=== PATIENT | female | born 1985 | race African-American/Black ===

== ENCOUNTER 2016-08-19 13:15 | Emergency (ER) | payer MEDICAID ==
--- NOTE | 2016-08-19 13:20 | ER Document Report ---
ED Medical Screen (RME) - General Stated Complaint: STOMACH PAIN Notes: 30 yo female c/o epigastric and suprapubic pain. epigastric pain x 2wk, intermittant. not aggrevated by food or drink. + nausea. suprapubic pressure x 2wk, intermittant. + dysuria, + urgency, + frequency, + vaginal discharge. + odor, no itch. pt hx/o anemia, anxiety TRAVEL OUTSIDE OF THE [place] IN LAST 30 DAYS: No - Related Data Allergies/Adverse Reactions: No Known Allergies Allergy (Verified 07/20/16 22:46) Past Medical History - Past Medical History Cardiac Medical History: Denies: Hx Coronary Artery Disease, Hx Heart Attack, Hx Hypertension Pulmonary Medical History: Denies: Hx Asthma, Hx Bronchitis, Hx COPD, Hx Pneumonia Neurological Medical History: Denies: Hx Cerebrovascular Accident, Hx Seizures Endocrine Medical History: Denies: Hx Diabetes Mellitus Type 1, Hx Diabetes Mellitus Type 2 Musculoskeltal Medical History: Denies Hx Arthritis Psychiatric Medical History: Reports: Hx Anxiety, Hx Depression Past Surgical History: Reports: Hx Tubal Ligation - Immunizations Immunizations up to date: Yes Hx Diphtheria, Pertussis, Tetanus Vaccination: Yes
[2016-08-19] MEDS ORDERED: METOCLOPRAMIDE HCL ORAL SOLN 10 MG/10 ML UDCUP PO ONE (13:21)
[2016-08-19] MEDS ORDERED: LIDOCAINE 2% VISCOUS SOLN 20 ML UDCUP PO ONE (13:21)
[2016-08-19] MEDS ORDERED: MAG HYDROX/AL HYDROX/SIMETH SUSP 30 ML UDCUP PO ONE (13:21)
[2016-08-19 14:18] LABS: APPEARANCE,URINE SLIGHTLY-CLOUDY; BILIRUBIN,URINE NEGATIVE (NEGATIVE); GLUCOSE, URINE NEGATIVE (NEGATIVE); KETONES,URINE NEGATIVE (NEGATIVE); LEUKOCYTE ESTERASE,URINE TRACE (NEGATIVE); NITRITE,URINE NEGATIVE (NEGATIVE); PROTEIN,URINE NEGATIVE (NEGATIVE); UROBILINOGEN,URINE NEGATIVE mg/dL (<2.0)
[2016-08-19 14:33] LABS: ABSOLUTE EOSINOPHILS # (AUTO) 0.1 10^3/uL (0.0-0.6); ABSOLUTE MONOCYTES (AUTO) 0.2 10^3/uL (0.1-1.4); ABSOLUTE NEUT (AUTO) 3.8 10^3/uL (1.7-8.2); BASOPHILS % (AUTO) 0.8 % (0-2); EOSINOPHILS % (AUTO) 1.8 % (0-6); HEMATOCRIT 38.2 % (36.0-47.0); HEMOGLOBIN 12.5 g/dL (12.0-15.5); HGB HCT DIFFERENCE -0.7; LYMPHOCYTES % (AUTO) 32.2 % (13-45); MEAN CORPUSCULAR HEMOGLOBIN 25.2 pg (27.0-33.4); MEAN CORPUSCULAR HGB CONC 32.8 g/dL (32.0-36.0); MEAN CORPUSCULAR VOLUME 77 fl (80-97); MONOCYTES % (AUTO) 3.5 % (3-13); RED BLOOD COUNT 4.97 10^6/uL (3.72-5.28); RED CELL DISTRIBUTION WIDTH 13.9 % (11.5-14.0); SEGMENTED NEUTROPHILS % (AUTO) 61.7 % (42-78); WHITE BLOOD COUNT 6.2 10^3/uL (4.0-10.5)
--- NOTE | 2016-08-19 16:06 | ER Document Report ---
ED GI/ - General Chief Complaint: Abdominal Pain Stated Complaint: STOMACH PAIN Notes: The patient is a 30-year-old female, past medical history bipolar, presents with 2 days of epigastric pain, described as a burning sensation. She is unsure about when the pain begins, but she does see that it worsens after she eats. She is also having a small amount of vaginal discharge and is concerned she has BV. She saw her health and wellness instructor and was told she did not have BV, but she did not have any exam. She also wrote on her triage sheet that she had eye pain , but denies any eye pain to me. She denies nausea, vomiting, back pain, abdominal distention, concern for STD, flank pain, dysuria, hematuria, blurry vision or rash. TRAVEL OUTSIDE OF THE [place] IN LAST 30 DAYS: No - Related Data Allergies/Adverse Reactions: No Known Allergies Allergy (Verified 08/19/16 13:19) Past Medical History - General Information source: Patient - Social History Smoking Status: Never Smoker Chew tobacco use (# tins/day): No Frequency of alcohol use: None Drug Abuse: None Family History: Reviewed & Not Pertinent Patient has suicidal ideation: No Patient has homicidal ideation: No - Past Medical History Cardiac Medical History: Denies: Hx Coronary Artery Disease, Hx Heart Attack, Hx Hypertension Pulmonary Medical History: Denies: Hx Asthma, Hx Bronchitis, Hx COPD, Hx Pneumonia Neurological Medical History: Denies: Hx Cerebrovascular Accident, Hx Seizures Endocrine Medical History: Denies: Hx Diabetes Mellitus Type 1, Hx Diabetes Mellitus Type 2 Musculoskeltal Medical History: Denies Hx Arthritis Psychiatric Medical History: Reports: Hx Anxiety, Hx Depression Past Surgical History: Reports: Hx Tubal Ligation - Immunizations Immunizations up to date: Yes Hx Diphtheria, Pertussis, Tetanus Vaccination: Yes Review of Systems - Review of Systems Notes: REVIEW OF SYSTEMS: CONSTITUTIONAL: -fevers, -chills EENT: -eye pain, -difficulty swallowing, -nasal congestion CARDIOVASCULAR:-chest pain, -syncope. RESPIRATORY: -cough, -SOB GASTROINTESTINAL: +abdominal pain, - nausea, -vomiting, -diarrhea GENITOURINARY: -dysuria, -hematuria, +vaginal discharge MUSCULOSKELETAL: -back pain, -neck pain SKIN: -rash or skin lesions. HEMATOLOGIC: -easy bruising or bleeding. LYMPHATIC: -swollen, enlarged glands. NEUROLOGICAL: -altered mental status or loss of consciousness, -headache, - neurologic symptoms PSYCHIATRIC: -anxiety, -depression. ALL OTHER SYSTEMS REVIEWED AND NEGATIVE. Physical Exam - Vital signs Vitals: Temp Pulse Resp BP Pulse Ox 97.9 F 89 14 127/86 H 98 08/19/16 13:19 08/19/16 13:19 08/19/16 13:19 08/19/16 13:19 08/19/16 13:19 - Notes Notes: PHYSICAL EXAMINATION: GENERAL: Well-appearing, well-nourished and in no acute distress. HEAD: Atraumatic, normocephalic. EYES: Pupils equal round and reactive to light, extraocular movements intact, sclera anicteric, conjunctiva are normal. ENT: nares patent, oropharynx clear without exudates. Moist mucous membranes. NECK: Normal range of motion, supple without lymphadenopathy LUNGS: Breath sounds clear to auscultation bilaterally and equal. No wheezes rales or rhonchi. HEART: Regular rate and rhythm without murmurs ABDOMEN: Soft, mild epigastric tender, normoactive bowel sounds. No guarding, no rebound. No masses appreciated. : Chaperoned by PCT. No vaginal discharge. Nontender adnexa and uterus. EXTREMITIES: Normal range of motion, no pitting or edema. No cyanosis. NEUROLOGICAL: Cranial nerves grossly intact. Normal speech, normal gait. Normal sensory, motor, and reflex exams. PSYCH: Normal mood, normal affect. SKIN: Warm, Dry, normal turgor, no rashes or lesions noted. Course - Re-evaluation Re-evalutation: Patient does not have any evidence of UTI or cervicitis on exam. She does not want to be treated for gonorrhea chlamydia at this time. She does not have BV on wet mount. She is only mildly tender in the epigastric region. Some labs were sent by [employer] prior to my evaluation. She does not require labs at this time because symptoms are consistent with gastritis. Will begin her on Pepcid and follow up with her primary care physician. - Vital Signs Vital signs: Temp Pulse Resp BP Pulse Ox 98.4 F 88 16 146/81 H 100 08/19/16 16:11 08/19/16 16:11 08/19/16 16:11 08/19/16 16:11 08/19/16 16:11 - Laboratory Result Diagrams: 08/19/16 14:20 08/19/16 14:20 Laboratory results interpreted by me: 08/19/16 08/19/16 13:42 14:20 MCV 77 L MCH 25.2 L Ur Leukocyte Esterase TRACE H Discharge - Discharge Clinical Impression: Vaginal discharge Gastritis Qualifiers: Gastritis type: unspecified gastritis Chronicity: unspecified Gastritis bleeding: without bleeding Qualified Code(s): K29.70 - Gastritis, unspecified, without bleeding Condition: Good Disposition: HOME, SELF-CARE Additional Instructions: Gastritis You have an inflammation of the stomach called gastritis. This commonly causes upper abdominal pain, nausea, and vomiting. In severe cases, bleeding of the stomach lining can occur. Gastritis can be caused by bacteria or viruses , alcohol, or stomach-irritating drugs. Begin with sips of clear liquids. Take increasing amounts of fluid over the first 24 hours. Then start small amounts of bland foods (such as dry toast , applesauce, mashed potato). Gradually resume your usual diet. You should take antacids every two hours until the pain has subsided. Acid -suppressing drugs may be prescribed as well. Avoid aspirin, caffeine, tobacco , and alcohol. If the abdominal pain worsens, or there is evidence of major bleeding in the stomach (such as black, tarry stool, bloody or black vomit, or lightheadedness), you should return immediately. Call the doctor if you aren't improved in 24 to 36 hours. Prescriptions: Famotidine [Pepcid 20 mg Tablet] 20 mg PO BID #20 tablet
[2016-08-19 16:11] VITALS: BP 146/81
[2016-08-19 16:54] LABS: CHLAM PCR NOT DETECTED (NOT DETECT)
== END 2016-08-19 16:29 | disposition home or self-care (01) ==
LOC: ER 13:15
DX: K29.70 Gastritis, unspecified, without bleeding (principal); N89.8 Other specified noninflammatory disorders of vagina; R10.9 Unspecified abdominal pain; F31.9 Bipolar disorder, unspecified; R10.13 Epigastric pain
CPT/HCPCS: 99284; 36415; 87210; 85025; 81025; 81001; 87491; 87591; J3490 ×3

== ENCOUNTER 2016-11-14 21:03 | Emergency (ER) | payer MEDICAID ==
[2016-11-14 22:02] VITALS: BP 142/91
[2016-11-14 23:44] LABS: APPEARANCE,URINE CLOUDY; BILIRUBIN,URINE NEGATIVE (NEGATIVE); GLUCOSE, URINE NEGATIVE (NEGATIVE); KETONES,URINE TRACE mg/dL (NEGATIVE); LEUKOCYTE ESTERASE,URINE MODERATE (NEGATIVE); NITRITE,URINE NEGATIVE (NEGATIVE); PROTEIN,URINE 30 mg/dL (NEGATIVE); URINE SPECIFIC GRAVITY 1.032; UROBILINOGEN,URINE NEGATIVE mg/dL (<2.0)
--- NOTE | 2016-11-15 01:10 | ER Document Report ---
ED General - General Chief Complaint: Pelvic Pain Stated Complaint: LOWER ABDOMINAL PAIN Notes: Patient is a 31-year-old female who presents with dysuria and suprapubic abdominal pain. Describes the pain as a dull, constant, aching pain to the suprapubic region that is worsened by urinating. She notes associated dysuria without hematuria. She has not seen her primary doctor regarding today's concerns. Nothing improves or worsens her pain. States this feels very similar to when she's had urinary tract infections in the past. Also notes that she continues to have malodorous vaginal discharge which she was diagnosed as having bacterial vaginosis. States she completed a course of metronidazole but this has not resolved her symptoms. Denies Vaginal bleeding. No vomiting or diarrhea. No abdominal pain to any other location beyond the suprapubic region. TRAVEL OUTSIDE OF THE [place] IN LAST 30 DAYS: No - Related Data Allergies/Adverse Reactions: No Known Allergies Allergy (Verified 11/14/16 21:57) Past Medical History - General Information source: Patient - Social History Smoking Status: Never Smoker Frequency of alcohol use: None Drug Abuse: None Lives with: Spouse/Significant other Family History: Reviewed & Not Pertinent Patient has suicidal ideation: No Patient has homicidal ideation: No - Past Medical History Cardiac Medical History: Denies: Hx Coronary Artery Disease, Hx Heart Attack, Hx Hypertension Pulmonary Medical History: Denies: Hx Asthma, Hx Bronchitis, Hx COPD, Hx Pneumonia Neurological Medical History: Denies: Hx Cerebrovascular Accident, Hx Seizures Endocrine Medical History: Denies: Hx Diabetes Mellitus Type 1, Hx Diabetes Mellitus Type 2 Renal/ Medical History: Denies: Hx Peritoneal Dialysis Musculoskeltal Medical History: Denies Hx Arthritis Psychiatric Medical History: Reports: Hx Anxiety, Hx Depression Past Surgical History: Reports: Hx Tubal Ligation - Immunizations Immunizations up to date: Yes Hx Diphtheria, Pertussis, Tetanus Vaccination: Yes Review of Systems - Review of Systems Notes: Constitutional: Negative for fever. HENT: Negative for sore throat. Eyes: Negative for visual changes. Cardiovascular: Negative for chest pain. Respiratory: Negative for shortness of breath. Gastrointestinal: Negative for abdominal pain, vomiting or diarrhea. Genitourinary: Positive for dysuria. Musculoskeletal: Negative for back pain. Skin: Negative for rash. Neurological: Negative for headaches, weakness or numbness. 10 point ROS negative except as marked above and in HPI. Physical Exam - Vital signs Vitals: Temp Pulse Resp BP Pulse Ox 98.4 F 87 18 142/91 H 99 11/14/16 21:57 11/14/16 21:57 11/14/16 21:57 11/14/16 21:57 11/14/16 21:57 Interpretation: Hypertensive Notes: PHYSICAL EXAMINATION: GENERAL: Well-appearing, well-nourished and in no acute distress. HEAD: Atraumatic, normocephalic. EYES: Pupils equal round and reactive to light, extraocular movements intact, sclera anicteric, conjunctiva are normal. ENT: nares patent, oropharynx clear without exudates. Moist mucous membranes. NECK: Normal range of motion, supple without lymphadenopathy LUNGS: Breath sounds clear to auscultation bilaterally and equal. No wheezes rales or rhonchi. HEART: Regular rate and rhythm without murmurs ABDOMEN: Soft, mild suprapubic tenderness to palpation, normoactive bowel sounds. No guarding, no rebound. No masses appreciated. EXTREMITIES: Normal range of motion, no pitting or edema. No cyanosis. NEUROLOGICAL: No focal neurological deficits. Moves all extremities spontaneously and on command. PSYCH: Normal mood, normal affect. SKIN: Warm, Dry, normal turgor, no rashes or lesions noted. Course - Re-evaluation Re-evalutation: 11/15/16 01:09 Patient presents with symptoms consistent with an acute cystitis. Vitals wnl. No history of fever, flank pain, or constitution symptoms to suggest ascending infection at this time. Patient is well in appearance, tolerating oral intake without difficulty. No focal abdominal tenderness to suggest acute appendicitis , biliary pathology, acute pancreatitis, tubo-ovarian abscesses, or pelvic inflammatory disease. Patient will be started on antibiotics at this time. I also started the patient on a repeat dose course of metronidazole given her concerns for ongoing bacterial vaginosis and instructed her follow-up with her [employer] regarding these concerns A culture has been sent. They will be discharged with return precautions and follow-up recommendations. - Vital Signs Vital signs: Temp Pulse Resp BP Pulse Ox 98.4 F 87 18 142/91 H 99 11/14/16 21:57 11/14/16 21:57 11/14/16 21:57 11/14/16 21:57 11/14/16 21:57 - Laboratory Laboratory results interpreted by me: 11/14/16 23:20 Urine Protein 30 H Urine Ketones TRACE H Ur Leukocyte Esterase MODERATE H Discharge - Discharge Clinical Impression: Urinary tract infection Qualifiers: Urinary tract infection type: acute cystitis Hematuria presence: without hematuria Qualified Code(s): N30.00 - Acute cystitis without hematuria Condition: Good Disposition: HOME, SELF-CARE Additional Instructions: Your urine shows findings consistent with a urinary tract infection. Please take all the antibiotics as directed even if your symptoms have improved. Please follow-up with your primary care physician as needed. Return to emergency room if you develop fever >101F, persistent vomiting, become lethargic , have severe pain in your sides, or any other symptoms that are concerning to you. Prescriptions: Cephalexin Monohydrate [Keflex 500 mg Capsule] 500 mg PO QID #20 capsule Metronidazole [Flagyl 500 mg Tablet] 500 mg PO TID #21 tablet Referrals: GABBY FULTON MD [Primary Care Provider] - Follow up as needed
== END 2016-11-15 01:20 | disposition home or self-care (01) ==
LOC: ER 21:03
DX: N30.00 Acute cystitis without hematuria (principal); R10.2 Pelvic and perineal pain; R30.0 Dysuria; N89.8 Other specified noninflammatory disorders of vagina; Z98.51 Tubal ligation status
CPT/HCPCS: 36415; 81001; 81025; 87086; 87088; 99284

== ENCOUNTER 2016-11-20 14:22 | Emergency (ER) | payer MEDICAID ==
--- NOTE | 2016-11-20 15:22 | ER Document Report ---
HPI - HPI Patient complains to provider of: painful urination, low abd. pain Onset: Other - 2 weeks Onset/Duration: Gradual, Persistent Pain Level: 4 Context: 31 yo female c/o low abd pain for 2 weeks, mild, intermittent, sharp. Dx with uti 4 days ago in er, meds not working. No pelvic exam was done. No fever or chills. no n/v/d. Associated Symptoms: None Exacerbated by: Denies Relieved by: Denies - ROS ROS below otherwise negative: Yes Systems Reviewed and Negative: Yes All other systems reviewed and negative - REPRODUCTIVE Reproductive: DENIES: : - DERM Skin Color: Normal Past Medical History - General Information source: Patient - Social History Smoking Status: Never Smoker Frequency of alcohol use: None Drug Abuse: None Lives with: Family Family History: Reviewed & Not Pertinent Patient has suicidal ideation: No Patient has homicidal ideation: No Renal/ Medical History: Denies: Hx Peritoneal Dialysis Psychiatric Medical History: Reports: Hx Anxiety, Hx Depression Surgical Hx: Negative Past Surgical History: Reports: Hx Tubal Ligation - Immunizations Immunizations up to date: Yes Hx Diphtheria, Pertussis, Tetanus Vaccination: Yes Vertical Provider Document - CONSTITUTIONAL Agree With Documented VS: Yes Exam Limitations: No Limitations - INFECTION CONTROL TRAVEL OUTSIDE OF THE [place] IN LAST 30 DAYS: No - HEENT HEENT: Normal ENT Exam - NECK Neck: Supple - RESPIRATORY Respiratory: Breath Sounds Normal, No Respiratory Distress O2 Sat by Pulse Oximetry: 100 - CARDIOVASCULAR Cardiovascular: Regular Rate, Regular Rhythm - GI/ABDOMEN Gastrointestinal: Abdomen Soft, Abdomen Tender - mild suprapubic, No Organomegaly - REPRODUCTIVE Female Genitalia: Normal Inspection. negative: CMT - BACK Back: Normal Inspection. negative: CVA Tenderness-Right, CVA Tenderness-Left - MUSCULOSKELETAL/EXTREMETIES Musculoskeletal/Extremeties: NICOLASA BRYANT - NEURO Level of Consciousness: Awake, Alert - DERM Integumentary: Warm, Dry, No Rash Course - Re-evaluation Re-evalutation: 11/20/16 16:51 The urine culture from 2 weeks ago showed [id number] genital bacteria , group B strep 20,000-30,000. 11/20/16 16:51 HCG is negative. 2+ bacteria and her urinalysis and the urine culture is pending. She will call me back for the STD culture results. The wet prep is negative. - Vital Signs Vital signs: Temp Pulse Resp BP Pulse Ox 98.2 F 94 15 142/86 H 100 11/20/16 14:26 11/20/16 14:26 11/20/16 14:26 11/20/16 14:26 11/20/16 14:26 Discharge - Discharge Clinical Impression: suprapubic discomfort, urinary tract infection Condition: Good Disposition: HOME, SELF-CARE Instructions: Urinary Tract Infection ([facility]), Trimethoprim-Sulfa ([facility]) Additional Instructions: Urine culture is pending We will notify you if he needs a different antibiotic Please call me in 2 hours at [phone] for the STD culture results Return to the emergency room any worsening of the symptoms Please complete the patient satisfaction survey if you get one, and return it.. If you do not receive a survey, then you can go to the [facility] website, [email or web address] and place your comments about your very good care. Thank you very much. It was a pleasure being your medical provider today. Prescriptions: Sulfamethoxazole/Trimethoprim [Sulfamethoxazole-Tmp Ds Tablet] 1 each PO BID # 14 tablet Forms: Return to Work
[2016-11-20 16:27] LABS: APPEARANCE,URINE SLIGHTLY-CLOUDY; BILIRUBIN,URINE NEGATIVE (NEGATIVE); GLUCOSE, URINE NEGATIVE (NEGATIVE); KETONES,URINE NEGATIVE (NEGATIVE); LEUKOCYTE ESTERASE,URINE LARGE (NEGATIVE); NITRITE,URINE NEGATIVE (NEGATIVE); PROTEIN,URINE NEGATIVE (NEGATIVE); URINE SPECIFIC GRAVITY 1.012; UROBILINOGEN,URINE NEGATIVE mg/dL (<2.0)
[2016-11-20 16:59] VITALS: BP 133/82
[2016-11-20 17:51] LABS: CHLAM PCR NOT DETECTED (NOT DETECT)
== END 2016-11-20 16:59 | disposition home or self-care (01) ==
LOC: ER 14:22
DX: N39.0 Urinary tract infection, site not specified (principal); R30.9 Painful micturition, unspecified; R10.30 Lower abdominal pain, unspecified
CPT/HCPCS: 81001; 81025; 87086; 87210; 87491; 87591; 99283

== ENCOUNTER 2017-11-22 11:31 | Emergency (ER) | payer MEDICAID ==
--- NOTE | 2017-11-22 12:03 | ER Document Report ---
HPI - HPI Patient complains to provider of: neck muscle pain Onset/Duration: Gradual Pain Level: 4 Context: 32 yo female c/o posterior neck rash, used biofreeze 2 days ago, but also did hair conditioner for 8 hours yesterday, not sure if the rash on her neck is from the biofreeze of the hair conditioner. Also complaining of irritation and mild discomfort to her right eye which is better than the left eye. She said she had some watery drainage that started yesterday at the same time as the rash. Associated Symptoms: None Exacerbated by: Coughing Relieved by: Denies Similar symptoms previously: No Recently seen / treated by doctor: No - ROS ROS below otherwise negative: Yes Systems Reviewed and Negative: Yes All other systems reviewed and negative - REPRODUCTIVE Reproductive: DENIES: : Past Medical History - General Information source: Patient - Social History Smoking Status: Never Smoker Frequency of alcohol use: None Drug Abuse: None Lives with: Family Family History: Reviewed & Not Pertinent - Medical History Medical History: Negative Renal/ Medical History: Denies: Hx Peritoneal Dialysis Psychiatric Medical History: Reports: Hx Anxiety, Hx Depression Past Surgical History: Reports: Hx Tubal Ligation - Immunizations Immunizations up to date: Yes Hx Diphtheria, Pertussis, Tetanus Vaccination: Yes Vertical Provider Document - CONSTITUTIONAL Agree With Documented VS: Yes Exam Limitations: No Limitations - INFECTION CONTROL TRAVEL OUTSIDE OF THE [place] IN LAST 30 DAYS: No - HEENT HEENT: Conjuctival Injection - minimal, no discharge, PERRLA Notes: no fluorescein uptake, eom's intact. - NECK Neck: Supple. negative: Lymphadenopathy-Left, Lymphadenopathy-Right Notes: tiny papular/vesicular rash posterior neck, pink. - RESPIRATORY Respiratory: Breath Sounds Normal, No Respiratory Distress - CARDIOVASCULAR Cardiovascular: Regular Rate, Regular Rhythm - MUSCULOSKELETAL/EXTREMETIES Musculoskeletal/Extremeties: MAEW - NEURO Level of Consciousness: Awake - DERM Integumentary: Warm, Dry, Rash Course - Vital Signs Vital signs: Temp Pulse Resp BP Pulse Ox 98.1 F 81 20 113/70 98 11/22/17 11:36 11/22/17 11:36 11/22/17 11:36 11/22/17 11:36 11/22/17 11:36 Discharge - Discharge Clinical Impression: Irritation of right eye Contact dermatitis Qualifiers: Contact dermatitis type: irritant Contact dermatitis trigger: cosmetics Qualified Code(s): L24.3 - Irritant contact dermatitis due to cosmetics Condition: Good Disposition: HOME, SELF-CARE Instructions: Contact Dermatitis ([facility]), Steroid Medication, Erythromycin ([facility]) Additional Instructions: see opthamologist if right eye irritation persists, to ER if worse this weekend eryth eye ointment four times per day for 2 days hydrocortisone ointment to neck three times per day for 5 days do not use the biofreeze or hair conditioner again, as we don't know which caused the skin reaction Referrals: VICTOR M RICARDO MD [ACTIVE STAFF] - Follow up as needed
[2017-11-22] MEDS ORDERED: ERYTHROMYCIN 0.5% OPH OINT 1 GM UNIT DOSE OD ONE (12:57)
[2017-11-22 13:39] VITALS: BP 105/68
== END 2017-11-22 13:44 | disposition home or self-care (01) ==
LOC: ER 11:31
DX: L24.3 Irritant contact dermatitis due to cosmetics (principal); H57.11 Ocular pain, right eye; M54.2 Cervicalgia
CPT/HCPCS: 99283; J3490

== ENCOUNTER 2017-12-20 10:17 | Outpatient (CLI) | payer MEDICAID ==
[~2017-12-20 10:17] MED LIST: FERRIC CARBOXYMALTOSE 750 MG in NORMAL SALINE 250 ML IV PRN; NORMAL SALINE 250 ML IV PRN
[2017-12-20 11:54] VITALS: BP 100/68
== END 2017-12-20 12:26 | disposition home or self-care (01) ==
LOC: II 10:17 → 5TH 10:23 → II 12:26
PROVIDERS: ATTEND Internal Medicine
PROC: 3E033GC Introduction of Other Therapeutic Substance into Peripheral Vein, Percutaneous Approach (ICD-10-PCS; principal; 2017-12-20)
DX: D50.0 Iron deficiency anemia secondary to blood loss (chronic) (principal); N92.0 Excessive and frequent menstruation with regular cycle; K90.9 Intestinal malabsorption, unspecified
CPT/HCPCS: 96367; J7050; J1439; 96365

== ENCOUNTER 2017-12-27 10:57 | Outpatient (CLI) | payer MEDICAID ==
[2017-12-27 10:36] VITALS: BP 140/90
== END 2017-12-27 11:04 | disposition home or self-care (01) ==
LOC: II 10:57 → 5TH 10:57 → II 11:04
PROVIDERS: ATTEND Internal Medicine
PROC: 3E033GC Introduction of Other Therapeutic Substance into Peripheral Vein, Percutaneous Approach (ICD-10-PCS; principal; 2017-12-27)
DX: D50.0 Iron deficiency anemia secondary to blood loss (chronic) (principal); N92.0 Excessive and frequent menstruation with regular cycle
CPT/HCPCS: 96365; J7050; J1439

== ENCOUNTER 2018-03-06 08:53 | Emergency (ER) | payer MEDICAID ==
[2018-03-06 09:06] VITALS: BP 117/70
[2018-03-06] MEDS ORDERED: KETOROLAC TROMETHAMINE 60 MG/2 ML SDV IM ONE (09:39)
--- NOTE | 2018-03-06 09:44 | ER Document Report ---
ED General - General Chief Complaint: Chest Pain Stated Complaint: CHEST PAIN Time Seen by Provider: 03/06/18 09:38 Mode of Arrival: Ambulatory Information source: Patient Notes: Chief complaint: Left chest wall pain History of complain:( obtained from----patient) 32 years old female presents today with 2 day history of left chest wall pain involving the left upper shoulder region as well as left arm and left side of the neck. Each time she moves her neck or move her left arm pain increases in intensity. Therefore presented to the ED. Denies any associated nausea vomiting palpitation or diaphoresis. Denies any shortness of breath. Denies any fever chills or cough. Onset: As above Duration: 2 days Severity: Moderate Quality: Dull ache Context: Unknown Exacerbating factor and relieving factors: Change of position REVIEW OF SYSTEMS: CONSTITUTIONAL : Denies fever, chills, or sweats. Denies recent illness. EENT: Denies eye, ear, throat, or mouth pain or symptoms. Denies nasal or sinus congestion or discharge. Denies throat, tongue, or mouth swelling or difficulty swallowing. CARDIOVASCULAR: . Denies palpitations or racing or irregular heart beat. Denies ankle edema. RESPIRATORY: Denies cough, cold, or chest congestion. Denies shortness of breath, difficulty breathing, or wheezing. GASTROINTESTINAL: Denies distention. Denies nausea, vomiting, or diarrhea. Denies blood in vomitus, stools, or per rectum. Denies black, tarry stools. Denies constipation. GENITOURINARY: Denies difficulty urinating, painful urination, burning, frequency, blood in urine, or discharge. FEMALE GENITOURINARY: Denies vaginal bleeding, heavy or abnormal periods, irregular periods. Denies vaginal discharge or odor. MUSCULOSKELETAL: Denies back or neck pain or stiffness. Denies joint pain or swelling. SKIN: Denies rash, lesions or sores. HEMATOLOGIC : Denies easy bruising or bleeding. LYMPHATIC: Denies swollen, enlarged glands. NEUROLOGICAL: Denies confusion or altered mental status. Denies passing out or loss of consciousness. Denies dizziness or lightheadedness. Denies headache. Denies weakness or paralysis or loss of use of either side. Denies problems with gait or speech. Denies sensory loss, numbness, or tingling. Denies seizures. PSYCHIATRIC: Denies anxiety or stress. Denies depression, suicidal ideation, or homicidal ideation. ALL OTHER SYSTEMS REVIEWED AND NEGATIVE. PHYSICAL EXAMINATION: GENERAL: Well-appearing, well-nourished and in no acute distress. Obesity HEAD: Atraumatic, normocephalic. EYES: Pupils equal round and reactive to light, extraocular movements intact, conjunctiva are normal. ENT: Nares patent, oropharynx clear without exudates. Moist mucous membranes. NECK: Normal range of motion, supple without lymphadenopathy LUNGS: Breath sounds clear to auscultation bilaterally and equal. No wheezes rales or rhonchi. HEART: Regular rate and rhythm without murmurs Chest wall-chest wall tenderness noted on palpation, diffusely over the pectoral muscle and at the insertion. As well as supraspinatus as well as trapezoid muscle region in the neck. ABDOMEN: Soft, nontender, nondistended abdomen. No guarding, no rebound. No masses appreciated. Examination of genitals-deferred Musculoskeletal: Normal range of motion, no pitting or edema. No cyanosis. NEUROLOGICAL: Cranial nerves grossly intact. Normal speech, normal gait. Normal sensory, motor exams PSYCH: Normal mood, normal affect. SKIN: Warm, Dry, normal turgor, no rashes or lesions noted. Dictation was performed using [employer] voice recognition software TRAVEL OUTSIDE OF THE [place] IN LAST 30 DAYS: No - HPI Notes: Dictated - Related Data Allergies/Adverse Reactions: No Known Allergies Allergy (Verified 03/06/18 08:54) Past Medical History - Social History Smoking Status: Never Smoker Chew tobacco use (# tins/day): No Frequency of alcohol use: None Drug Abuse: None Family History: Reviewed & Not Pertinent Patient has suicidal ideation: No Patient has homicidal ideation: No - Past Medical History Cardiac Medical History: Denies: Hx Coronary Artery Disease, Hx Heart Attack, Hx Hypertension Pulmonary Medical History: Denies: Hx Asthma, Hx Bronchitis, Hx COPD, Hx Pneumonia Neurological Medical History: Denies: Hx Cerebrovascular Accident, Hx Seizures Endocrine Medical History: Denies: Hx Diabetes Mellitus Type 1, Hx Diabetes Mellitus Type 2 Renal/ Medical History: Denies: Hx Peritoneal Dialysis Musculoskeletal Medical History: Denies Hx Arthritis Psychiatric Medical History: Reports: Hx Anxiety, Hx Depression Past Surgical History: Reports: Hx Tubal Ligation - Immunizations Immunizations up to date: Yes Hx Diphtheria, Pertussis, Tetanus Vaccination: Yes Review of Systems - Review of Systems Notes: Dictated Physical Exam - Vital signs Vitals: Temp Pulse Resp BP Pulse Ox 98.3 F 65 16 117/70 100 03/06/18 09:05 03/06/18 09:05 03/06/18 09:05 03/06/18 09:05 03/06/18 09:05 - Notes Notes: Dictated Course - Re-evaluation Re-evalutation: 03/06/18 09:42 Given Toradol IM - Vital Signs Vital signs: Temp Pulse Resp BP Pulse Ox 98.3 F 65 16 117/70 100 03/06/18 09:05 03/06/18 09:05 03/06/18 09:05 03/06/18 09:05 03/06/18 09:05 Discharge - Discharge Clinical Impression: Chest wall pain Cervical strain, acute Qualifiers: Encounter type: initial encounter Qualified Code(s): S16.1XXA - Strain of muscle, fascia and tendon at neck level, initial encounter Condition: Fair Disposition: HOME, SELF-CARE Instructions: Anti-Inflammatory Medication ([facility]), Chest Wall Pain ([facility]) Prescriptions: Ibuprofen [Motrin 600 mg Tablet] 600 mg PO Q8HP PRN #30 tablet PRN Reason: Baclofen [Baclofen 10 mg Tablet] 10 mg PO TID #30 tablet Hydrocodone/Acetaminophen [Hydrocodon-Acetaminophen 5-325] 1 each PO BID PRN #7 tablet PRN Reason:
[2018-03-06] MEDS ORDERED: ACETAMINOPHEN 325 MG TABLET PO ONE (09:55)
[2018-03-06] MEDS ORDERED: ACETAMINOPHEN 325 MG TABLET ONE (09:56)
--- NOTE | 2018-03-07 00:03 | EKG REPORT ---
SEVERITY:- NORMAL ECG - SINUS RHYTHM : Confirmed by: Donna Auguste MD 07-Mar-2018 00:02:22
== END 2018-03-06 10:01 | disposition home or self-care (01) ==
LOC: ER 08:53
DX: S16.1XXA Strain of muscle, fascia and tendon at neck level, initial encounter (principal); R07.89 Other chest pain; X58.XXXA Exposure to other specified factors, initial encounter; Z98.51 Tubal ligation status
CPT/HCPCS: 93005; 99284; 93010; J3490

== ENCOUNTER 2018-04-12 17:11 | Emergency (ER) | payer MEDICAID ==
--- NOTE | 2018-04-12 19:08 | ER Document Report ---
ED Medical Screen (RME) - General Chief Complaint: Flank Pain Stated Complaint: SIDE PAIN Time Seen by Provider: 04/12/18 19:02 TRAVEL OUTSIDE OF THE [place] IN LAST 30 DAYS: No - HPI Notes: 04/12/18 19:08 Left flank pain worsens with movement 04/12/18 19:08 - Related Data Allergies/Adverse Reactions: No Known Allergies Allergy (Verified 04/12/18 17:33) Past Medical History - Past Medical History Cardiac Medical History: Denies: Hx Coronary Artery Disease, Hx Heart Attack, Hx Hypertension Pulmonary Medical History: Denies: Hx Asthma, Hx Bronchitis, Hx COPD, Hx Pneumonia Neurological Medical History: Denies: Hx Cerebrovascular Accident, Hx Seizures Endocrine Medical History: Denies: Hx Diabetes Mellitus Type 1, Hx Diabetes Mellitus Type 2 Renal/ Medical History: Denies: Hx Peritoneal Dialysis Musculoskeltal Medical History: Denies Hx Arthritis Psychiatric Medical History: Reports: Hx Anxiety, Hx Depression Past Surgical History: Reports: Hx Abdominal Surgery - Gastric sleeve, Hx Cholecystectomy, Hx Tubal Ligation - Immunizations Immunizations up to date: Yes Hx Diphtheria, Pertussis, Tetanus Vaccination: Yes Review of Systems - Review of Systems -: Yes ROS unobtainable due to patient's medical condition - Left flank Physical Exam - Vital signs Vitals: Temp Pulse Resp BP Pulse Ox 97.8 F 72 17 115/69 100 04/12/18 18:09 04/12/18 18:09 04/12/18 18:09 04/12/18 18:09 04/12/18 18:09 - Abdominal Notes: Left flank pain worsens with movement no CVA tenderness no rashes Course - Vital Signs Vital signs: Temp Pulse Resp BP Pulse Ox 97.8 F 72 17 115/69 100 04/12/18 18:09 04/12/18 18:09 04/12/18 18:09 04/12/18 18:09 04/12/18 18:09
[2018-04-12] MEDS ORDERED: ACETAMINOPHEN 325 MG TABLET PO ONE (19:47)
[2018-04-12] MEDS ORDERED: LIDOCAINE 5% (700 MG) TRANSDERMAL ADH..PATCH TP ONE (19:47)
[2018-04-12] MEDS ORDERED: KETOROLAC TROMETHAMINE 60 MG/2 ML SDV IM ONE (19:47)
[2018-04-12 19:51] LABS: APPEARANCE,URINE SLIGHTLY-CLOUDY; BILIRUBIN,URINE NEGATIVE (NEGATIVE); COLOR,URINE YELLOW; GLUCOSE, URINE NEGATIVE (NEGATIVE); KETONES,URINE NEGATIVE (NEGATIVE); LEUKOCYTE ESTERASE,URINE LARGE (NEGATIVE); NITRITE,URINE NEGATIVE (NEGATIVE); PROTEIN,URINE NEGATIVE (NEGATIVE); URINE SPECIFIC GRAVITY 1.023
[2018-04-12 20:19] LABS: ABSOLUTE LYMPHOCYTES (AUTO) 1.7 10^3/uL (0.5-4.7); ABSOLUTE MONOCYTES (AUTO) 0.2 10^3/uL (0.1-1.4); ABSOLUTE NEUT (AUTO) 1.9 10^3/uL (1.7-8.2); EOSINOPHILS % (AUTO) 1.3 % (0-6); HEMATOCRIT 38.8 % (36.0-47.0); HEMOGLOBIN 12.6 g/dL (12.0-15.5); LYMPHOCYTES % (AUTO) 43.4 % (13-45); MEAN CORPUSCULAR HEMOGLOBIN 26.4 pg (27.0-33.4); MEAN CORPUSCULAR HGB CONC 32.5 g/dL (32.0-36.0); MEAN CORPUSCULAR VOLUME 81 fl (80-97); MONOCYTES % (AUTO) 5.5 % (3-13); PLATELET COUNT 283 10^3/uL (150-450); RED BLOOD COUNT 4.78 10^6/uL (3.72-5.28); RED CELL DISTRIBUTION WIDTH 14.9 % (11.5-14.0); SEGMENTED NEUTROPHILS % (AUTO) 48.8 % (42-78); TOTAL CELLS COUNTED % (AUTO) 100 %; WHITE BLOOD COUNT 3.8 10^3/uL (4.0-10.5)
[2018-04-12 20:47] LABS: ALANINE AMINOTRANSFERASE 27 U/L (9-52); ALBUMIN 3.9 g/dL (3.5-5.0); ALKALINE PHOSPHATASE 35 U/L (38-126); ANION GAP 11 (5-19); ASPARTATE AMINO TRANSFERASE 22 U/L (14-36); BILIRUBIN,DIRECT 0.3 mg/dL (0.0-0.4); BILIRUBIN,TOTAL 0.6 mg/dL (0.2-1.3); BLOOD UREA NITROGEN 9 mg/dL (7-20); CALCIUM 8.9 mg/dL (8.4-10.2); CARBON DIOXIDE 22 mmol/L (22-30); CHLORIDE 107 mmol/L (98-107); GLUCOSE 76 mg/dL (75-110); LIPASE 86.5 U/L (23-300); POTASSIUM 4.1 mmol/L (3.6-5.0); SODIUM 139.9 mmol/L (137-145)
--- NOTE | 2018-04-12 20:53 | ER Document Report ---
ED General - General Chief Complaint: Flank Pain Stated Complaint: SIDE PAIN Time Seen by Provider: 04/12/18 19:02 Notes: Patient is a 32-year-old female without chronic medical problems who presents with several hours of left side pain. Patient reports that this pain started relatively abruptly approximately 4-5 hours ago and has been ongoing since that time. She describes it as an aching, cramping pain to her left flank. It is improved by massaging her pressing on the area. Nothing other than moving worsens the pain. She is unsure what triggered the pain. She denies history of similar symptoms in the past. She denies any nausea, vomiting, abdominal pain, hematuria or dysuria. She has not seen her general regarding today's concerns. TRAVEL OUTSIDE OF THE [place] IN LAST 30 DAYS: No - Related Data Allergies/Adverse Reactions: No Known Allergies Allergy (Verified 04/12/18 17:33) Past Medical History - General Information source: Patient - Social History Smoking Status: Former Smoker Frequency of alcohol use: None Drug Abuse: None Lives with: Spouse/Significant other Family History: Reviewed & Not Pertinent Patient has suicidal ideation: No Patient has homicidal ideation: No - Past Medical History Cardiac Medical History: Denies: Hx Coronary Artery Disease, Hx Heart Attack, Hx Hypertension Pulmonary Medical History: Denies: Hx Asthma, Hx Bronchitis, Hx COPD, Hx Pneumonia Neurological Medical History: Denies: Hx Cerebrovascular Accident, Hx Seizures Endocrine Medical History: Denies: Hx Diabetes Mellitus Type 1, Hx Diabetes Mellitus Type 2 Renal/ Medical History: Denies: Hx Peritoneal Dialysis Musculoskeletal Medical History: Denies Hx Arthritis Psychiatric Medical History: Reports: Hx Anxiety, Hx Depression Past Surgical History: Reports: Hx Abdominal Surgery - Gastric sleeve, Hx Cholecystectomy, Hx Tubal Ligation - Immunizations Immunizations up to date: Yes Hx Diphtheria, Pertussis, Tetanus Vaccination: Yes Review of Systems - Review of Systems Notes: Constitutional: Negative for fever. HENT: Negative for sore throat. Eyes: Negative for visual changes. Cardiovascular: Negative for chest pain. Respiratory: Negative for shortness of breath. Gastrointestinal: Positive for left flank pain Genitourinary: Negative for dysuria. Musculoskeletal: Negative for back pain. Skin: Negative for rash. Neurological: Negative for headaches, weakness or numbness. 10 point ROS negative except as marked above and in HPI. Physical Exam - Vital signs Vitals: Temp Pulse Resp BP Pulse Ox 97.8 F 72 17 115/69 100 04/12/18 18:09 04/12/18 18:09 04/12/18 18:09 04/12/18 18:04/12/18 18:09 Interpretation: Normal Notes: PHYSICAL EXAMINATION: GENERAL: Well-appearing, well-nourished and in no acute distress. HEAD: Atraumatic, normocephalic. EYES: Pupils equal round and reactive to light, extraocular movements intact, sclera anicteric, conjunctiva are normal. ENT: nares patent, oropharynx clear without exudates. Moist mucous membranes. NECK: Normal range of motion, supple without lymphadenopathy LUNGS: Breath sounds clear to auscultation bilaterally and equal. No wheezes rales or rhonchi. HEART: Regular rate and rhythm without murmurs ABDOMEN: Soft, nontender, normoactive bowel sounds. No guarding, no rebound. No masses appreciated. EXTREMITIES: Normal range of motion, no pitting or edema. No cyanosis. NEUROLOGICAL: No focal neurological deficits. Moves all extremities spontaneously and on command. PSYCH: Normal mood, normal affect. SKIN: Warm, Dry, normal turgor, no rashes or lesions noted. Course - Re-evaluation Re-evalutation: 04/12/18 20:50 Patient presents with left flank pain for the past 4-5 hours that appears to be most probable musculoskeletal in origin. The pain is actually improved by massage or palpation of the area and indeed when I palpate the area on exam she states that it actually feels better. She denies any hematuria, radiation of the pain in her urinalysis is not consistent with either pyelonephritis or nephrolithiasis. She has no focal abdominal pain, pain is completely isolated to the left flank. She has no shortness of breath or pleuritic pain to suggest an acute pulmonary embolus and is PERC criteria negative. Labs otherwise unremarkable. Two-view of the abdomen does not show any evidence of a stone. I have treated the patient with topical lidocaine and Toradol with significant improvement of her pain. I have a very low clinical suspicion at this point for any life-threatening pathology including an acute pulmonary embolus, pneumothorax, bowel obstruction, pyelonephritis, nephrolithiasis, or any other concerning condition. At this time will discharge with return precautions and follow-up recommendations. Verbal discharge instructions given a the bedside and opportunity for questions given. Medication warnings reviewed. Patient is in agreement with this plan and has verbalized understanding of return precautions and the need for primary care follow-up in the next 24-72 hours. - Vital Signs Vital signs: Temp Pulse Resp BP Pulse Ox 98.8 F 60 18 119/78 98 04/12/18 21:38 04/12/18 21:38 04/12/18 21:38 04/12/18 21:38 04/12/18 21:38 - Laboratory Result Diagrams: 04/12/18 20:00 04/12/18 20:00 Laboratory results interpreted by me: 04/12/18 04/12/18 04/12/18 19:19 20:00 20:00 WBC 3.8 L MCH 26.4 L RDW 14.9 H Alkaline Phosphatase 35 L Urine Urobilinogen 2.0 H Ur Leukocyte Esterase LARGE H - Diagnostic Test Radiology reviewed: Image reviewed, Reports reviewed Radiology results interpreted by me: 04/13/18 02:53 Abdominal 2 view: No evidence of a stone on the left side. Discharge - Discharge Clinical Impression: Left flank pain Condition: Good Disposition: HOME, SELF-CARE Additional Instructions: Your symptoms appear to be most likely related to musculoskeletal strain. Your labs and x-ray are normal today. Your urine does not show any evidence of infection. Use the topical Voltaren gel that has been prescribed to the affected area as needed for pain. You may also take Tylenol 1000 mg every 6 hours. Heat and massage the area may also be helpful. Please return if you develop fever greater than 100.4F, worsening of your pain, shortness of breath , vomiting, or any other new or concerning symptoms. Please follow-up with your general doctor within the next 24-48 hours. Prescriptions: Diclofenac Sodium [Voltaren] 4 gm TP TID PRN #100 gel..gram. PRN Reason:
--- NOTE | 2018-04-12 21:14 | RADIOLOGY REPORT (SQ) ---
EXAM DESCRIPTION: ABDOMEN 2 VIEWS COMPLETED DATE/TIME: 04/12/2018 8:51 pm REASON FOR STUDY: abdominal pain, constipation COMPARISON: Three-way abdomen series 07/21/2016 NUMBER OF VIEWS: Two views. TECHNIQUE: Supine and upright radiographic images of the abdomen acquired. LIMITATIONS: None. FINDINGS: FREE AIR: None. No abnormal gas collections. LUNG BASES: Clear. BOWEL GAS PATTERN: Nonobstructive pattern. No dilated loops or air fluid levels. CALCIFICATIONS: No suspicious calcifications. SOFT TISSUES: No gross mass or suggestion of organomegaly. HARDWARE: Surgical dallin left upper quadrant post gastric bypass. Clips post bilateral tubal ligat ion, clips post cholecystectomy. BONES: No acute fracture. No worrisome bone lesions. OTHER: No other significant finding. IMPRESSION: Post gastric bypass, cholecystectomy and tubal ligation. Grossly nonobstructive bowel gas pattern TECHNICAL DOCUMENTATION: JOB ID: [id number] [employer]- All Rights Reserved Reading location - IP/workstation name: [email or web address]
[2018-04-12 21:40] VITALS: BP 119/78
== END 2018-04-12 21:40 | disposition home or self-care (01) ==
LOC: ER 17:11
DX: R10.9 Unspecified abdominal pain (principal); Z87.891 Personal history of nicotine dependence
CPT/HCPCS: 99284; 96372; 36415; 83690; 85025; 81025; 80053; 81001; 74019; J3490 ×2; J1885